=== PATIENT | female | born 1985 | race Caucasian/White ===

== ENCOUNTER 2017-05-20 23:00 | Emergency (ER) | payer OTHER ==
[2017-05-20 23:42] VITALS: BP 121/70; PULSE 70; RESP 16; TEMP 97.8; O2SAT 99
--- NOTE | 2017-05-20 23:54 | PD ---
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 There is no blood in the razor. The patient was shaving the source patient's chest accidentally nicked her finger. Trace pain has resolved. No additional complaints. Source patient infectious disease profile is unknown however considered low risk. PFSH Past Medical History Asthma: Yes Diminished Hearing: No Immunizations Current: Yes ?: Not Past Surgical History Section: Yes Gynecologic Surgery: Yes (IUD REMOVAL) Oral Surgery: Yes Social History Alcohol Use: No Tobacco Use: Yes Substance Use: No Allergies-Medications (Allergen,Severity, Reaction): Coded Allergies: amoxicillin (Verified Allergy, Severe, 05/20/17) aspirin (Verified Allergy, Severe, 05/20/17) azithromycin (Verified Allergy, Severe, 05/20/17) Review of Systems General / Constitutional: No: Fever HENT: No: Rhinitis Respiratory: No: Shortness of Breath, Sneezing Genitourinary: No: Urgency Physical Exam Narrative GENERAL: 31-year-old female pleasant no acute distress SKIN: Warm and dry. There is a minute abrasion overlying the radial aspect of the index finger on left hand. HEAD: Normocephalic. EYES: No scleral icterus. No injection or drainage. Data Data Last Documented VS Vital Signs Date Time Temp Pulse Resp B/P (MAP) Pulse Ox O2 Delivery O2 Flow Rate FiO2 05/20/17 23:42 97.8 70 16 121/70 (87) 99 Room Air MDM Medical Decision Making Medical Screen Exam Complete: Yes Emergency Medical Condition: Yes Medical Record Reviewed: Yes Differential Diagnosis HCV exposure, hiv exposure, laceration Narrative Course Based on the mechanism of exposure the patient does not need prophylaxis. Diagnosis Primary Impression: Employee exposure to body fluids Med/Other Pt SpecificInfo: No Change to Meds Disposition: 01 DISCHARGE HOME Condition: Stable Rigoberto Nunez MD May 20, 2017 23:54
== END 2017-05-21 00:37 | disposition home or self-care (01) ==
LOC: NEPE 23:00
DX: S60.411A Abrasion of left index finger, initial encounter (principal); W26.8XXA Contact with other sharp object(s), not elsewhere classified, initial encounter; Y93.F9 Activity, other caregiving
CPT/HCPCS: 99282